=== PATIENT | female | born 1955 | race Caucasian/White ===

== ENCOUNTER 2019-06-04 10:14 | Emergency (ER) | payer OTHER ==
[~2019-06-04] VITALS: Ht 170.2 cm; Wt 88.0 kg
[2019-06-04] MEDS ORDERED: UNITHROID100 MCG PO (10:26)
[2019-06-04] MEDS ORDERED: OMEPRAZOLE40 MG PO (10:27)
[2019-06-04] MEDS ORDERED: CELEBREX100 MG PO (10:27)
[2019-06-04] MEDS ORDERED: VALACYCLOVIR500 MG PO (10:27)
[2019-06-04] MEDS ORDERED: BENTYL10 MG/1 ML PO (11:13)
== END 2019-06-04 12:20 | disposition home or self-care (01) ==
LOC: ED 10:14
DX: K51.911 Ulcerative colitis, unspecified with rectal bleeding (principal); Z79.899 Other long term (current) drug therapy
CPT/HCPCS: 36415; 80053; 85025; 99283